=== PATIENT | male | born 1980 | race Two or more races ===

== ENCOUNTER 2023-11-07 11:33 | Emergency (ER) | payer SELFPAY ==
[~2023-11-07] VITALS: Ht 180.3 cm; Wt 68.4 kg
[2023-11-07 15:10] LABS: Urine Bacteria FEW /hpf (None Seen); Urine Blood Negative /uL (Negative); Urine Clarity Clear (Clear); Urine Color Yellow (Yellow); Urine Mucus FEW (None Seen); Urine Protein, UAD TRACE (Negative); Urine Sperm PRESENT /hpf (None Seen); Urine Urobilinogen Normal (Negative); Urine WBC 5 /hpf (0 - 3); Urine pH 6.5 (5.0-9.0)
[2023-11-07 15:45] VITALS: BP 115/80; PULSE 90; RESP 18; TEMP 98; O2SAT 97
[2023-11-07] MEDS: HYDROcodone-ACET 10/325MG TAB PO ONE (16:51)
[2023-11-07] MEDS ORDERED: ACE3T PO (18:07)
[2023-11-07] MEDS ORDERED: CEPH250C PO (18:07)
[2023-11-07] MEDS ORDERED: IBUP-1454 PO (18:07)
[2023-11-07] MEDS: TETANUS-DIPTH-ACEL PERTUSSIS 0.5ML SYR Tdap IM ONE (18:17)
== END 2023-11-07 18:34 | disposition home or self-care (01) ==
LOC: EDBD 11:33 → ER 11:33
DX: S01.511A Laceration without foreign body of lip, initial encounter (principal); S60.512A Abrasion of left hand, initial encounter; S60.511A Abrasion of right hand, initial encounter; S80.212A Abrasion, left knee, initial encounter; S80.211A Abrasion, right knee, initial encounter; W18.39XA Other fall on same level, initial encounter; Y93.02 Activity, running; Y92.89 Other specified places as the place of occurrence of the external cause; Y99.8 Other external cause status
CPT/HCPCS: 12011; 71101; 81001; 90471; 90715